=== PATIENT | male | born 1960 | race African-American/Black ===

== ENCOUNTER 2025-09-21 10:49 | Outpatient (CLI) | payer MEDICAID | END 2025-09-21 17:00 | disposition home or self-care (01) | LOC: RT 10:49 | PROVIDERS: ATTEND Internal Medicine Pulmonary Disease | DX: J44.89 Other specified chronic obstructive pulmonary disease (principal); R06.00 Dyspnea, unspecified; R05.3 Chronic cough | CPT/HCPCS: 94060; 94727; 94729 ==